=== PATIENT | female | born 1940 | race Caucasian/White ===

== ENCOUNTER 2018-11-27 09:17 | Day surgery (SDC) | payer MEDICARE ==
[2018-11-27] MEDS ORDERED: DIPRIVAN 200 MG/20 ML IV ONE (09:18)
[2018-11-27] MEDS ORDERED: Ketamine HCl 50 MG/ML IJ ONE (09:18)
[2018-11-27] MEDS ORDERED: LIDOCAINE HCL 2% 100 MG/5 ML IJ ONE (09:18)
[2018-11-27] MEDS ORDERED: Marcaine 0.5% SDV 10 ML IJ ONE (09:18)
[2018-11-27] MEDS ORDERED: Depo-Medrol 40 MG/ML IM ONE (09:18)
[2018-11-27] MEDS ORDERED: Lactated Ringers 1,000 ML IV ONE (14:24)
--- NOTE | 2018-11-27 16:19 | XRAY ---
Indication: Right knee injection. Intraoperative fluoroscopy was provided for 7 seconds. Single digital spot image submitted for interpretation demonstrates anterior needle tip projecting in the right intercondylar notch. Small amount of contrast injected for needle tip placement. Correlate with intraoperative findings/report.
--- NOTE | 2018-11-27 16:19 | XRAY ---
Indication: Left knee injection. Intraoperative fluoroscopy was provided for 7 seconds. Single digital spot image submitted for interpretation demonstrates anterior needle tip projecting in the left intercondylar notch. Small amount of contrast injected for needle tip placement. Correlate with intraoperative findings/report.
--- NOTE | 2018-11-27 16:27 | XRAY ---
7 seconds of fluoroscopy was used in surgery for right knee intra-articular injection.
--- NOTE | 2018-11-27 16:37 | XRAY ---
7 seconds of fluoroscopy was used in surgery for left knee intra-articular injection.
== END 2018-11-27 11:42 | disposition home or self-care (01) ==
LOC: SDC-PAIN 09:17
PROVIDERS: ATTEND Psychiatry & Neurology Pain Medicine
DX: M17.0 Bilateral primary osteoarthritis of knee (principal); M16.9 Osteoarthritis of hip, unspecified; E11.9 Type 2 diabetes mellitus without complications; I10 Essential (primary) hypertension; M06.9 Rheumatoid arthritis, unspecified; K21.9 Gastro-esophageal reflux disease without esophagitis; D64.9 Anemia, unspecified; J45.909 Unspecified asthma, uncomplicated; Z79.899 Other long term (current) drug therapy
CPT/HCPCS: 20610; 73560; 77002; 82962; 99100; J1030; J2704; Q9966

== ENCOUNTER 2018-12-25 10:48 | Day surgery (SDC) | payer MEDICARE ==
[2018-12-25] MEDS ORDERED: Ketamine HCl 50 MG/ML IJ ONE (10:49)
[2018-12-25] MEDS ORDERED: Depo-Medrol 40 MG/ML IM ONE (10:49)
[2018-12-25] MEDS ORDERED: DIPRIVAN 200 MG/20 ML IV ONE (10:49)
[2018-12-25] MEDS ORDERED: LIDOCAINE HCL 2% 100 MG/5 ML IJ ONE (10:49)
[2018-12-25] MEDS ORDERED: Marcaine 0.5% SDV 10 ML IJ ONE (10:49)
--- NOTE | 2018-12-25 13:36 | XRAY ---
Indication: Right hip injection. Intraoperative fluoroscopy was provided for 8 seconds. Single digital spot image submitted for interpretation demonstrates needle tip just lateral to the right femur neck. Small amount of contrast injected for needle tip placement. Correlate with intraoperative findings/report.
--- NOTE | 2018-12-25 13:36 | XRAY ---
Indication: Left hip injection. Intraoperative fluoroscopy was provided for 7 seconds. Single digital spot image submitted for interpretation demonstrates needle tip just lateral to the left femur neck. Small amount of contrast injected for needle tip placement. Correlate with intraoperative findings/report.
--- NOTE | 2018-12-25 13:39 | XRAY ---
7 seconds fluoroscopy time in surgery for right hip injection.
--- NOTE | 2018-12-25 13:39 | XRAY ---
8 seconds fluoroscopy time in surgery for right hip injection.
[2018-12-25] MEDS ORDERED: Lactated Ringers 1,000 ML IV ONE (17:11)
== END 2018-12-25 12:52 | disposition home or self-care (01) ==
LOC: SDC-PAIN 10:48
PROVIDERS: ATTEND Psychiatry & Neurology Pain Medicine
DX: M16.0 Bilateral primary osteoarthritis of hip (principal); E11.9 Type 2 diabetes mellitus without complications; Z79.899 Other long term (current) drug therapy; I10 Essential (primary) hypertension; J45.909 Unspecified asthma, uncomplicated; M06.9 Rheumatoid arthritis, unspecified; M32.9 Systemic lupus erythematosus, unspecified; D64.9 Anemia, unspecified
CPT/HCPCS: 20610; 73501; 77002; 82962; J1030; J2704; Q9966

== ENCOUNTER 2019-01-15 10:42 | Day surgery (SDC) | payer MEDICARE ==
[2019-01-15] MEDS ORDERED: XYLOCAINE 1% HCL 20 ML MDV IJ ONE (10:43)
[2019-01-15] MEDS ORDERED: Xylocaine 1% Vial 30 ML PF IJ ONE (10:43)
[2019-01-15] MEDS ORDERED: DIPRIVAN 200 MG/20 ML IV ONE (10:43)
[2019-01-15] MEDS ORDERED: Ketamine HCl 50 MG/ML IV ONE (10:43)
[2019-01-15] MEDS ORDERED: Depo-Medrol 40 MG/ML IM ONE (10:43)
[2019-01-15] MEDS ORDERED: Marcaine 0.5% SDV 10 ML IJ ONE (10:43)
[2019-01-15] MEDS ORDERED: Lactated Ringers 1,000 ML IV ONE (13:49)
--- NOTE | 2019-01-15 13:51 | XRAY ---
Indication: Right knee injection. Intraoperative fluoroscopy was provided for 4 seconds. Single digital spot image submitted for interpretation demonstrates needle tip projecting over the right femur intercondylar notch. Small amount of contrast injected for needle tip placement. Correlate with intraoperative findings/report.
--- NOTE | 2019-01-15 13:51 | XRAY ---
Indication: Left knee injection. Intraoperative fluoroscopy was provided for 4 seconds. Single digital spot image submitted for interpretation demonstrates needle tip projecting over the left femur intercondylar notch. Small amount of contrast injected for needle tip placement. Correlate with intraoperative findings/report.
--- NOTE | 2019-01-15 13:53 | XRAY ---
4 seconds fluoroscopy time in surgery for left knee injection.
--- NOTE | 2019-01-15 14:03 | XRAY ---
4 seconds fluoroscopy time in surgery for right knee injection.
== END 2019-01-15 12:26 | disposition home or self-care (01) ==
LOC: SDC-PAIN 10:42
PROVIDERS: ATTEND Psychiatry & Neurology Pain Medicine
DX: M17.0 Bilateral primary osteoarthritis of knee (principal); E11.9 Type 2 diabetes mellitus without complications; I10 Essential (primary) hypertension; J45.909 Unspecified asthma, uncomplicated; Z79.899 Other long term (current) drug therapy; K21.9 Gastro-esophageal reflux disease without esophagitis; D64.9 Anemia, unspecified; M06.9 Rheumatoid arthritis, unspecified
CPT/HCPCS: 20610; 73560; 77002; 82962; J1030; J2001; J2704; Q9966

== ENCOUNTER 2019-04-23 10:38 | Day surgery (SDC) | payer MEDICARE ==
[2019-04-23] MEDS ORDERED: Sodium Chloride 0.9(Preservative Free) 10 ML IJ ONE (10:39)
[2019-04-23] MEDS ORDERED: Depo-Medrol 40 MG/ML IM ONE (10:39)
[2019-04-23] MEDS ORDERED: Ketamine HCl 50 MG/ML ONE (11:56)
[2019-04-23] MEDS ORDERED: DIPRIVAN 200 MG/20 ML IV ONE (11:56)
--- NOTE | 2019-04-23 13:35 | XRAY ---
Indication: Right L4-S1 CATHERINE. Intraoperative fluoroscopy was provided for 42 seconds. 3 digital spot images submitted for interpretation demonstrates posterior needle tips projecting over the expected course of the right L4 and L5 nerve roots. Small amount of contrast injected for needle tip placement. Correlate with intraoperative findings/report.
--- NOTE | 2019-04-23 13:40 | XRAY ---
42 seconds fluoroscopy time in surgery for right L4-S1 CATHERINE.
[2019-04-23] MEDS ORDERED: Lactated Ringers 1,000 ML IV ONE (15:25)
== END 2019-04-23 12:25 | disposition home or self-care (01) ==
LOC: SDC-PAIN 10:38
PROVIDERS: ATTEND Psychiatry & Neurology Pain Medicine
DX: M54.16 Radiculopathy, lumbar region (principal); E11.9 Type 2 diabetes mellitus without complications; I10 Essential (primary) hypertension; J45.909 Unspecified asthma, uncomplicated; K21.9 Gastro-esophageal reflux disease without esophagitis; M06.9 Rheumatoid arthritis, unspecified; Z79.899 Other long term (current) drug therapy
CPT/HCPCS: 64483; 64484; 72100; 77003; 82962; 99100; J1030; J2704; Q9966

== ENCOUNTER 2024-11-17 09:54 | Emergency (ER) | payer MEDICARE ==
[~2024-11-17 09:54] MED LIST: REGADENOSON IV ONE
--- NOTE | 2024-11-17 09:59 | ERPHSYRPT ---
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 Patient has had 4 of these nuclear medicine cardiac studies. Each 1 has if her symptoms. This was different today and that her chest discomfort radiated into her left jaw and left arm. She states that there is resolution of chest pain and left arm pain and decreased left jaw pain. Patient has a history of CHF, hypertension, insulin-dependent diabetes, gastroesophageal reflux disease and hyperlipidemia. She is on Eliquis. Timing/Duration: today Quality: aching Location: substernal, central Chest Pain Radiation: jaw (left), arm (left) Severity of Pain-Max: mild Severity of Pain-Current: none Nitro Today/Relief: no nitro taken today Aspirin Treatment Today: 81 mg x 4, provided by ED Associated Symptoms: denies symptoms Prior Chest Pain/Cardiac Workup: cardiac cath, echocardiography Home Medications: Atorvastatin Calcium [Lipitor] 40 mg PO DAILY 12/24/17 [History] Lactulose 15 ml PO DAILY 12/24/17 [History] Metoprolol Tartrate 25 mg [Lopressor 25MG Tab] 25 mg PO BID 12/24/17 [History] Montelukast Sodium 10 mg [Singulair 10 MG] 10 mg PO DAILY 12/24/17 [History] PANTOPRAZOLE 40 mg Tablet [Protonix 40MG Tablet] 40 mg PO QAM 12/24/17 [History] Ropinirole HCl 0.5 mg [Requip 0.5 MG] 0.5 mg PO QHS 12/24/17 [History] Apixaban [Eliquis] 5 mg PO BID 01/28/18 [History] Famotidine [Pepcid] 20 mg PO DAILY 01/28/18 [History] Insulin Detemir [Levemir] 100 unit SQ UD 01/28/18 [History] Insulin Lispro [Humalog Kwikpen U-100] 100 unit SQ TID 01/28/18 [History] Methocarbamol [Robaxin 500 MG] 500 mg PO HS 01/28/18 [History] Methyl-B12/l-Mefolate/B6 Phos [Metanx Tablet] 1 each PO BID 01/28/18 [History] Oxycodone HCl 10 mg PO TID 01/28/18 [History] Pen Needle, Diabetic [Novofine Plus] 1 each MC UD 01/28/18 [History] Torsemide 10 mg PO BID 01/28/18 [History] Triamcinolone 0.1% Cream [Kenalog 0.1% Cream 15 gm] 15 gm TP UD 01/28/18 [History] predniSONE [Prednisone] 2.5 mg PO DAILY 01/28/18 [History] Travel Risk - International Travel Have you traveled outside of the country in past 3 weeks: No If Yes, where;: N - Emerging Infectious Disease Are you exhibiting symptoms associated with any current EIDs: No - Review of Systems Constitutional: No Symptoms Eyes: No Symptoms Ears, Nose, & Throat: No Symptoms Respiratory: No Symptoms Cardiac: Chest Pain Abdominal/Gastrointestinal: No Symptoms Genitourinary Symptoms: No Symptoms Musculoskeletal: No Symptoms Skin: No Symptoms Neurological: No Symptoms Psychological: No Symptoms Endocrine: No Symptoms Hematologic/Lymphatic: No Symptoms Immunological/Allergic: No Symptoms All Other Systems: Reviewed and Negative - Past Medical History Pertinent Past Medical History: Yes - Nursing Vital Signs Nursing Vital Signs: Initial Vital Signs Pulse Rate 80 11/17/24 09:56 Respiratory Rate 16 11/17/24 09:56 Blood Pressure 151/73 11/17/24 09:56 O2 Sat by Pulse Oximetry 99 11/17/24 09:56 Pain Scale Pain Intensity 0 - Physical Exam General Appearance: no apparent distress, alert, thin Eye Exam: PERRL/EOMI, eyes nml inspection Ears, Nose, Throat Exam: normal ENT inspection, moist mucous membranes Neck Exam: normal inspection, non-tender, supple, full range of motion Respiratory Exam: normal breath sounds, chest tenderness (Resolved), lungs connor ar, airway intact, No respiratory distress Cardiovascular Exam: regular rate/rhythm, normal heart sounds, normal peripheral pulses Gastrointestinal/Abdomen Exam: soft, normal bowel sounds, No tenderness Pelvic Exam: not done Rectal Exam: not done Back Exam: normal inspection, normal range of motion, No CVA tenderness, No vertebral tenderness Extremity Exam: normal inspection, normal range of motion, pelvis stable Neurologic Exam: alert, oriented x 3, cooperative, fermenter II-XII nml as tested, normal mood/affect, nml cerebellar function, nml station & gait, sensation nml Skin Exam: normal color, warm, dry Lymphatic Exam: No adenopathy O2 Delivery: Room Air - Course Nursing assessment & vital signs reviewed: Yes EKG Interpreted by Me: RATE (79), Sinus Rhythm, NORMAL INTERVALS, NORMAL QRS, Other (qtc 466; no acute ischemia) Ordered Tests: Active Orders 24 hr Category Date Time Status EKG-ER Only STAT Care 11/17/24 10:07 Active IV Insertion STAT Care 11/17/24 10:07 Active Pulse Oximetry (ED) STAT Care 11/17/24 10:07 Active HEART SPECT MULTIPLE [NUCMED] Routine Exams 11/17/24 07:09 Completed CBC W DIFF Stat Lab 11/17/24 10:20 Completed CMP Stat Lab 11/17/24 10:20 Completed MAGNESIUM Stat Lab 11/17/24 10:20 Completed NT PRO BNPII Stat Lab 11/17/24 10:20 Completed PROTIME WITH INR Stat Lab 11/17/24 10:20 Completed TROPONIN Q4H Lab 11/17/24 10:20 Completed TROPONIN Q4H Lab 11/17/24 12:08 Completed TROPONIN Q4H Lab 11/17/24 18:15 Ordered Cardiolite Stress Test-RT ONCE RT 11/17/24 08:00 Completed Medication Summary Discontinued Medications Generic Name Dose Route Start Last Admin Trade Name Freq PRN Reason Stop Dose Admin Aspirin 324 mg 11/17/24 10:07 11/17/24 10:46 Aspirin 81 Mg Tab.Chew PO 11/17/24 10:08 Not Given STAT ONE Aspirin Confirm 11/17/24 10:30 Aspirin 81 Mg Tab.Chew Administered 11/17/24 10:31 Dose 324 mg .ROUTE .STK-MED ONE Regadenoson 0.4 mg 11/17/24 09:00 Regadenoson 0.4 Mg/5 Ml Syringe IV 11/17/24 09:01 1XONLY ONE Lab/Rad Data: Laboratory Result Diagrams 11/17/24 10:20 11/17/24 10:20 Laboratory Results 11/17/24 11/17/24 11/17/24 Range/Units 12:08 10:20 10:20 WBC (3.98-10.04) x10^3/uL RBC (3.93-5.22) x10^6/uL Hgb (11.2-15.7) g/dL Hct (34.1-44.9) % MCV (79.4-94.8) fL MCH (25.6-32.2) pg MCHC (32.2-35.5) g/dL RDW (11.7-14.4) % Plt Count (182-369) x10^3/uL MPV (9.4-12.3) fL Gran % (34.0-71.1) % Immature Gran % (Auto) (0.001-0.429) % Nucleat RBC Rel Count (0.00-0.2) % Eos # (Auto) (0.04-0.36) x10^3/uL Immature Gran # (Auto) (0.001-0.031) x10^3u/L Absolute Lymphs (auto) (1.18-3.74) x10^3/uL Absolute Monos (auto) (0.24-0.86) x10^3/uL Absolute Nucleated RBC (0.00-0.012) x10^3u/L Lymphocytes % (19.3-51.7) % Monocytes % (4.7-12.5) % Eosinophils % (0.7-5.8) % Basophils % (0.1-1.2) % Absolute Granulocytes (1.56-6.13) x10^3/uL Basophils # (0.01-0.08) x10^3/uL PT 11.9 (9.4-12.5) SECONDS INR 1.10 (0.8-3.0) Sodium (135-145) mmol/L Potassium (3.5-5.1) mmol/L Chloride (98-107) mmol/L Carbon Dioxide (22-30) mmol/L Anion Gap (5-15) MEQ/L BUN (7-17) mg/dL Creatinine (0.52-1.04) mg/dL Estimated GFR ML/MIN Glucose (74-106) mg/dL Calcium (8.4-10.2) mg/dL Magnesium (1.6-2.3) mg/dL Total Bilirubin (0.2-1.3) mg/dL AST (14-36) U/L ALT (0-35) U/L Alkaline Phosphatase (38-126) U/L Troponin I < 0.012 < 0.012 (0.000-0.033) ng/mL NT-Pro-B Natriuret Pep (<300) pg/mL Serum Total Protein (6.3-8.2) g/dL Albumin (3.5-5.0) g/dL 11/17/24 11/17/24 Range/Units 10:20 10:20 WBC 5.0 (3.98-10.04) x10^3/uL RBC 3.45 L (3.93-5.22) x10^6/uL Hgb 10.6 L (11.2-15.7) g/dL Hct 33.0 L (34.1-44.9) % MCV 95.7 H (79.4-94.8) fL MCH 30.7 (25.6-32.2) pg MCHC 32.1 L (32.2-35.5) g/dL RDW 12.1 (11.7-14.4) % Plt Count 164 L (182-369) x10^3/uL MPV 10.2 (9.4-12.3) fL Gran % 63.1 (34.0-71.1) % Immature Gran % (Auto) 0.2 (0.001-0.429) % Nucleat RBC Rel Count 0.0 (0.00-0.2) % Eos # (Auto) 0.14 (0.04-0.36) x10^3/uL Immature Gran # (Auto) 0.01 (0.001-0.031) x10^3u/L Absolute Lymphs (auto) 1.18 (1.18-3.74) x10^3/uL Absolute Monos (auto) 0.48 (0.24-0.86) x10^3/uL Absolute Nucleated RBC 0.00 (0.00-0.012) x10^3u/L Lymphocytes % 23.8 (19.3-51.7) % Monocytes % 9.7 (4.7-12.5) % Eosinophils % 2.8 (0.7-5.8) % Basophils % 0.4 (0.1-1.2) % Absolute Granulocytes 3.12 (1.56-6.13) x10^3/uL Basophils # 0.02 (0.01-0.08) x10^3/uL PT (9.4-12.5) SECONDS INR (0.8-3.0) Sodium 139 (135-145) mmol/L Potassium 4.3 (3.5-5.1) mmol/L Chloride 102 (98-107) mmol/L Carbon Dioxide 28 (22-30) mmol/L Anion Gap 12.7 (5-15) MEQ/L BUN 27 H (7-17) mg/dL Creatinine 0.85 (0.52-1.04) mg/dL Estimated GFR 67.9 ML/MIN Glucose 105 (74-106) mg/dL Calcium 9.3 (8.4-10.2) mg/dL Magnesium 1.7 (1.6-2.3) mg/dL Total Bilirubin 0.70 (0.2-1.3) mg/dL AST 34 (14-36) U/L ALT 23 (0-35) U/L Alkaline Phosphatase 68 (38-126) U/L Troponin I (0.000-0.033) ng/mL NT-Pro-B Natriuret Pep 573 (<300) pg/mL Serum Total Protein 6.5 (6.3-8.2) g/dL Albumin 3.8 (3.5-5.0) g/dL - Progress Progress: improved, re-examined Air Movement: good Progress Note: 11/17/24 10:22 My medical decision making in the assignment of moderate complexity to this patient's medical issue today is based on review of the patient's past medical history, review patient medication list, reviewed patient drug allergy list, history present illness and physical findings on examination. The workup in this patient includes placement of a intravenous line, CBC, CMP, magnesium level, troponin level, BNP, twelve-lead EKG. Differential diagnosis includes but is not limited to side effect of the nuclear medicine contrast, electrolyte abnormalities, myocardial infarction, CHF, arrhythmia 11/17/24 11:28 I interpreted the patient's laboratory data results. Based on the laboratory data results, the patient does have mildly low hemoglobin at 10.6. The remainder of her lab work does not suggest any acute, emergent medical issue. 11/17/24 12:17 I reexamined the patient. Patient does not have chest pain. She has no jaw pain. She has no left upper extremity pain. She is not short of breath. 11/17/24 13:19 I interpreted the patient's repeat twelve-lead EKG that was performed on 11/17/2024 at 1242. The heart rate is 83 bpm and normal sinus rhythm. QTc is 448. No acute ischemic changes. I reexamined the patient and she has no chest pain, no arm pain and no jaw pain. Her vital signs are stable. Her repeat troponin is negative/normal Blood Culture(s) Obtained: No Antibiotics given: No Counseled pt/family regarding: lab results, diagnosis, need for follow-up Medical Desision Making - Diagnostic Testing Diagnostic test were ordered, analyzed, and reviewed by me: Yes Radiological Interpretation: Reviewed by me, Teleradiologist Report - Risk of complications Low Risk: Low risk of morbidity from additional dx testing or treatment - Departure Departure Disposition: Home Clinical Impression: Nonspecific chest pain Condition: Stable Critical Care Time: No Referrals: TENNILLE GOTTLIEB MD [Primary Care Provider] - Follow up/PCP as directed Additional Instructions: Continue your medications as prescribed. Call your primary care provider today, 11/17/2024, to make arrangements for follow-up appointment for further evaluation and management.
[2024-11-17 10:09] VITALS: TEMP 97.2
[2024-11-17 10:24] LABS: Absolute Neutrophil Ct (ANC) 3.12 x10^3/uL (1.56-6.13); BASOPHIL % 0.4 % (0.1-1.2); Basophil (Absolute #) 0.02 x10^3/uL (0.01-0.08); Eosinophil % 2.8 % (0.7-5.8); Eosinophil (Absolute #) 0.14 x10^3/uL (0.04-0.36); Hemoglobin 10.6 g/dL (11.2-15.7); IMMATURE GRAN # 0.01 x10^3u/L (0.001-0.031); IMMATURE GRAN % 0.2 % (0.001-0.429); Lymphocyte (Absolute #) 1.18 x10^3/uL (1.18-3.74); Lymphocytes % 23.8 % (19.3-51.7); Mean Cell Volume 95.7 fL (79.4-94.8); Mean Corpuscular Hemoglobin 30.7 pg (25.6-32.2); Mean Corpuscular Hgb Concent. 32.1 g/dL (32.2-35.5); Mean Platelet Volume 10.2 fL (9.4-12.3); Monocyte (Absolute #) 0.48 x10^3/uL (0.24-0.86); Monocytes % 9.7 % (4.7-12.5); Neutrophil % 63.1 % (34.0-71.1); Platelet Count 164 x10^3/uL (182-369); Red Blood Count 3.45 x10^6/uL (3.93-5.22); Red Cell Distribution Width 12.1 % (11.7-14.4)
[2024-11-17] MEDS ORDERED: BABY ASPIRIN 81 MG CHEW ONE (10:30)
[2024-11-17] MEDS: BABY ASPIRIN 81 MG CHEW PO ONE (10:31)
[2024-11-17 10:42] LABS: INR 1.1 (0.8-3.0); PROTIME 11.9 SECONDS (9.4-12.5)
--- NOTE | 2024-11-17 10:59 | XRAY ---
Indication: Chest, jaw, and left arm pain. Short of breath. Diabetes. Hypertension. Comparison: None Patient received 30.0 mCi technetium 99 Myoview for the stress portion of the exam and 9.8 mCi technetium 99 Myoview for the resting. 0.4 mg IV Lexiscan given as a pharmacologic stressor. Images obtained in short, vertical, and horizontal axis. Left ventricle chamber is normal in size and configuration. No fixed or reversible perfusion defects. Gated SPECT images demonstrates normal ventricular contractility and wall motion. Ejection fraction calculated greater than 70%, normal. Impression: 1. No scintigraphic evidence for pharmacologic induced reversible ischemia. 2. Normal ejection fraction.
[2024-11-17 11:01] LABS: ALBUMIN 3.8 g/dL (3.5-5.0); ANION GAP 12.7 MEQ/L (5-15); BILIRUBIN,TOTAL 0.7 mg/dL (0.2-1.3); Calcium 9.3 mg/dL (8.4-10.2); Creatinine 1 0.85 mg/dL (0.52-1.04); EST GLOMERULAR FILTRATION RATE 67.9 ML/MIN; MAGNESIUM 1.7 mg/dL (1.6-2.3); Potassium 4.3 mmol/L (3.5-5.1); Total Protein 6.5 g/dL (6.3-8.2)
[2024-11-17 11:51] VITALS: PULSE 82; RESP 18
[2024-11-17 14:30] VITALS: BP 162/72; O2SAT 97
== END 2024-11-17 14:38 | disposition home or self-care (01) ==
LOC: EDSTATUS 09:54 → ED 09:54
DX: R07.9 Chest pain, unspecified (principal); I11.0 Hypertensive heart disease with heart failure; I50.9 Heart failure, unspecified; E11.9 Type 2 diabetes mellitus without complications; E78.5 Hyperlipidemia, unspecified; Z79.01 Long term (current) use of anticoagulants; Z79.4 Long term (current) use of insulin; Z79.899 Other long term (current) drug therapy
CPT/HCPCS: 36415; 78452; 80053; 83735; 83880; 84484; 85025; 85610; 93005; 93015; 94760; 99284; A9502; J0280; J2785; A9270-GY